=== PATIENT | male | born 1985 | race Caucasian/White ===

== ENCOUNTER 2025-03-29 17:44 | Emergency (ER) | payer OTHER ==
[~2025-03-29] VITALS: Ht 180.3 cm; Wt 154.2 kg
[2025-03-29] MEDS ORDERED: CLIN-141 PO (18:35)
--- NOTE | 2025-03-29 18:35 | ERN ---
General Chief Complaint: Lower Extremity Pain/Injury Stated Complaint: RT LOWER EXTREMITY REDNESS Time Seen by MD: 17:48 Time Seen by Midlevel: 17:48 Source: patient History of Present Illness Initial Comments Patient is a pleasant 40-year-old male with a past medical history of cellulitis presenting to the emergency department for evaluation of right lower extremity redness that started earlier today. He noticed an area of erythema in his unsure if he was bit by an insect. He states the previous time he was diagnosed with cellulitis and admitted to the hospital his symptoms started like the ones from today. He specifically denies any fever, chills, or any other symptoms at this time. Allergies: Coded Allergies: Penicillins (Unverified Allergy, Severe, 03/29/25) Past Medical History Past Medical History: Other Medical History Other: CELLULITS, SLEEP APNEA Past Surgical History: Other Surgical History Other: SINUS SX ROS Dictation CONSTITUTIONAL: Negative except for HPI HEAD/FACE: Negative except for HPI EENT: Negative except for HPI RESPIRATORY: Negative except for HPI GASTROINTESTINAL/ABDOMINAL: Negative except for HPI GENITOURINARY: Negative except for HPI MUSCULOSKELETAL: Negative except for HPI INTEGUMENTARY: Negative except for HPI NEUROLOGICAL/PSYCH: Negative except for HPI HEMATOLOGIC/LYMPHATIC: Negative except for HPI All Systems Negative, Except as noted above. 13 point review of systems assessed and all negative except for above. Physical Exam Physical Exam Dictation Vital Signs reviewed General Appearance: Alert, oriented x 3, no acute distress, well developed, nourished. Head and Face: non-traumatic. Eyes: PERRL, pink conjunctivas, eyelid no trauma, anterior chamber with arcus senilis. Ears: Pinnas intact and no signs of trauma or erythema ear canals clear and no discharge TM no erythema Nose: No discharge, no bleeding. Oropharynx: Mouth normal, tongue pink, pharynx clear,no erythema, tonsils no exudates, no abscesses noted, mucous membrane moist Neck: Supple, non-tender, no thyromegaly, no masses, no JVD, no bruits Breast:Deferred Chest:No tenderness, no crepitus, no paradoxical movement, no retractions Lungs:Clear, well-ventilated, symmetric, no rales, no wheezing, no rhonchi, no stridor, good breath sounds bilaterally Heart: Regular rate, regular rhythm, no murmur, no gallops Vascular: no peripheral edema, Abdomen: Soft, positive bowel sounds, nondistended, no guarding, nontender, no rebound, no masses no hepatomegaly, no splenomegaly, no Graff's sign, no hernias. Rectal: Deferred Genital: Deferred Neurological: Normal speech, motor function intact, sensory function intact Musculoskeletal: Neck nontender, full range of motion, back nontender, full range of motion, Extremities: nontender, full range of motion Skin: Small area of erythema to the right inner lower leg lateral to be calf. Mildly warm to touch, no fluctuance or drainable abscess noted Lymphatic: Deferred MDM MDM: Differential diagnosis: Cellulitis, insect bite, There are no social concerns with this patient. Prescription drug management Prescriptions will include: Clindamycin Medical management and examination interpretation discussions were had by me with other qualified healthcare professionals as indicated for the patient's care. ED Course Vital Signs Date Time Temp Pulse Resp B/P (MAP) Pulse Ox O2 Delivery O2 Flow Rate FiO2 03/29/25 17:56 98.2 99 18 169/101 97 Room Air* 0 21 03/29/25 17:45 98.2 99 18 169/101 97 Room Air 0 DX & DISP Disposition: Discharge Departure Impression: Primary Impression: Cellulitis of right lower leg Condition: Stable Scripts Clindamycin HCl (Clindamycin HCl) 300 Mg Capsule 1 CAP PO TID for 10 Days, #30 CAP 0 Refills Prov: RA BARNETT 03/29/25 Referrals: SELF,REFERRAL (PCP) Time of Disposition: 18:33 I have reviewed the case, and I agree with, Diagnosis and Plan I performed the substantive portion of the visit. I have reviewed and personally made and approve the management plan that is documented in the note by myself or the [facility]ILVER. I acknowledge for responsibility for the patient's management plan. RA BARNETT Mar 29, 2025 18:35
[2025-03-29 18:36] VITALS: BP 145/72; PULSE 89; RESP 18; TEMP 98.2; O2SAT 97
== END 2025-03-29 18:37 | disposition home or self-care (01) ==
LOC: EDH 17:44
DX: L03.115 Cellulitis of right lower limb (principal); Z88.0 Allergy status to penicillin
CPT/HCPCS: 99283

== ENCOUNTER 2025-04-01 15:38 | Emergency (ER) | payer OTHER ==
[~2025-04-01] VITALS: Ht 180.3 cm; Wt 154.2 kg
[~2025-04-01 15:38] MED LIST: CLIN-141 PO
--- NOTE | 2025-04-01 15:48 | ERN ---
ED Note History of Present Illness Stated Complaint: RT LEG SWELLING Chief Complaint: Lower Extremity Pain/Injury Time Seen by MD: 15:43 Dictation: PATIENT IS A 40-YEAR-OLD MALE COMING IN TODAY WITH A ERYTHEMA TENDERNESS TO THE RIGHT LOWER LEG CALF WITH SWELLING HE HAS HAD FOR 3-4 DAYS. NO FEVER NO CHILLS NO NAUSEA VOMITING. NO HISTORY OF TRAUMA. HE WAS SEEN HER AT [facility] [place] DIAGNOSED WITH CELLULITIS WAS PLACED ON CLINDAMYCIN. HE SAID HE HAS BEEN COMPLIANT WITH CLINDAMYCIN PRESCRIBED, HOWEVER HE DOES NOT HAVE A PRIMARY CARE DOCTOR TO FOLLOW UP WITH. Allergies: Coded Allergies: Penicillins (Unverified Allergy, Severe, 03/29/25) Home Meds Active Scripts Clindamycin HCl (Clindamycin HCl) 300 Mg Capsule, 1 CAP PO TID for 10 Days, #30 CAP 0 Refills Prov:RA BARNETT 03/29/25 Past Medical History Past Medical History: Other Additional Past Medical Hx: CELLULITS, SLEEP APNEA Surgical History: Other Surgical History Other: SINUS SX RN Note Reviewed/Agreed w/PFSH: Yes Review of System Dictation CONSTITUTIONAL: NEGATIVE EXCEPT FOR HPI HEAD/FACE: NEGATIVE EXCEPT FOR HPI EENT: NEGATIVE EXCEPT FOR HPI RESPIRATORY: NEGATIVE EXCEPT FOR HPI GASTROINTESTINAL/ABDOMINAL: NEGATIVE EXCEPT FOR HPI GENITOURINARY: NEGATIVE EXCEPT FOR HPI MUSCULOSKELETAL: NEGATIVE EXCEPT FOR HPI RIGHT LEG CALF SWELLING TENDERNESS. ERYTHEMA INTEGUMENTARY: NEGATIVE EXCEPT FOR HPI NEUROLOGICAL/PSYCH: NEGATIVE EXCEPT FOR HPI HEMATOLOGIC/LYMPHATIC: NEGATIVE EXCEPT FOR HPI ALL SYSTEMS NEGATIVE, EXCEPT NOTED ABOVE. 13 POINT REVIEW OF SYSTEMS ASSESSED AND ALL NEGATIVE EXCEPT FOR ABOVE. Initial Vital Sign VS Vital Signs Date Time Temp Pulse Resp B/P (MAP) Pulse Ox O2 Delivery O2 Flow Rate FiO2 04/01/25 15:40 98.2 98 18 177/97 97 Room Air 0 04/01/25 15:52 21 Physical Exam Dictation VITAL SIGNS REVIEWED GENERAL APPEARANCE: ALERT, ORIENTED X 3, NO ACUTE DISTRESS, WELL DEVELOPED, NOURISHED. MORBID OBESITY HEAD AND FACE: NON-TRAUMATIC. EYES: PERRL, PINK CONJUNCTIVAS, EYELID NO TRAUMA, ANTERIOR CHAMBER WITH ARCUS SENILIS. EARS: PINNAS INTACT AND NO SIGNS OF TRAUMA OR ERYTHEMA EAR CANALS CLEAR AND NO DISCHARGE TM NO ERYTHEMA NOSE: NO DISCHARGE, NO BLEEDING. OROPHARYNX: MOUTH NORMAL, TONGUE PINK, PHARYNX CLEAR,NO ERYTHEMA, TONSILS NO EXUDATES, NO ABSCESSES NOTED, MUCOUS M EMBRANE MOIST NECK: SUPPLE, NON-TENDER, NO THYROMEGALY, NO MASSES, NO JVD, NO BRUITS BREAST:DEFERRED CHEST:NO TENDERNESS, NO CREPITUS, NO PARADOXICAL MOVEMENT, NO RETRACTIONS LUNGS:CLEAR, WELL-VENTILATED, SYMMETRIC, NO RALES, NO WHEEZING, NO RHONCHI, NO STRIDOR, GOOD BREATH SOUNDS BILATERALLY HEART: REGULAR RATE, REGULAR RHYTHM, NO MURMUR, NO GALLOPS VASCULAR: NO PERIPHERAL EDEMA, ABDOMEN: SOFT, POSITIVE BOWEL SOUNDS, NONDISTENDED, NO GUARDING, NONTENDER, NO REBOUND, NO MASSES NO HEPATOMEGALY, NO SPLENOMEGALY, NO HARRISON'S SIGN, NO HERNIAS. RECTAL: DEFERRED GENITAL: DEFERRED NEUROLOGICAL: SKIN: COLOR PINK, DRY, NO TURGOR, NO RASH, NO LACERATIONS, NO ABRASIONS, NO CONTUSIONS. LYMPHATIC: DEFERRED RIGHT CALF WITH MILD SWELLING TENDERNESS. NO ERYTHEMA. SKIN IS INTACT. DISTAL NEUROVASCULAR CMS INTACT. Results (Laboratory/Radiology) Laboratory/Radiology Laboratory Tests Test 04/01/25 16:06 White Blood Count 8.8 K/uL (4.8-10.8) Red Blood Count 5.01 MIL/uL (4.50-6.20) Hemoglobin 15.1 g/dL (14.0-18.0) Hematocrit 45.1 % (42-54) Mean Corpuscular Volume 90.0 fL (79-99) Mean Corpuscular Hemoglobin 30.1 pg (27.0-33.0) Mean Corpuscular Hemoglobin Concent 33.5 g/dL (32.0-36.0) Red Cell Distribution Width 12.4 % (11.0-15.5) Platelet Count 223 K/uL (130-400) Mean Platelet Volume 10.5 fL (7.5-10.5) Immature Granulocyte % (Auto) 0.2 % (0-1) Neutrophils (%) (Auto) 63.5 % (40.0-77.0) Lymphocytes (%) (Auto) 22.9 % (21.0-51.0) Monocytes (%) (Auto) 7.4 % (3.0-13.0) Eosinophils (%) (Auto) 5.3 % (0.0-8.0) Basophils (%) (Auto) 0.7 % (0.0-5.0) Neutrophils # (Auto) 5.6 K/uL (1.8-7.7) Lymphocytes # (Auto) 2.0 K/uL (1.0-4.8) Monocytes # (Auto) 0.7 K/uL (0.1-1.0) Eosinophils # (Auto) 0.47 K/uL (0.00-0.70) Basophils # (Auto) 0.06 K/uL (0.00-0.20) Absolute Immature Granulocyte (auto 0.02 K/uL (0-1) Nucleated Red Blood Cells 0.0 % (0.0-0.19) Sodium Level 143 mmol/L (136-145) Potassium Level 3.7 mmol/L (3.5-5.1) Chloride Level 103 mmol/L (101-111) Carbon Dioxide Level 29 mmol/L (21-32) Blood Urea Nitrogen 13 mg/dL (7-18) Creatinine 0.9 mg/dL (0.5-1.3) Glomerular Filtration Rate Calc 112 mL/min (>90) Random Glucose 145 mg/dL (70-105) H Total Calcium 9.5 mg/dL (8.5-10.1) 1655/DOPPLER ULTRASOUND OF RIGHT LEG NEGATIVE FOR DVT Labs Reviewed?: Yes ED Course ED Course Orders Procedure Category Date Status Time Us Venous Doppler US 04/01/25 Taken Unilateral 15:45 Cbc With Differential LAB 04/01/25 Complete 15:45 Basic Metabolic Panel LAB 04/01/25 Complete 15:45 Vital Signs Date Time Temp Pulse Resp B/P (MAP) Pulse Ox O2 Delivery O2 Flow Rate FiO2 04/01/25 15:52 98.1 90 16 174/89 96 Room Air* 0 21 04/01/25 15:40 98.2 98 18 177/97 97 Room Air 0 1655/PATIENT DISCHARGED HOME WITH MUSCULOSKELETAL PAIN RIGHT LEG. IN ADDITION HE IS AWARE THAT HE IS HYPERGLYCEMIC, PROBABLE EARLY TYPE 2 DIABETES. WE WILL BE GIVEN IBUPROFEN AND GIVEN A LIST OF THE PRIMARY CARE DOCTORS ON STAFF TO FOLLOW UP NEXT WEEK. IN ADDITION HE WILL BE MADE AWARE THAT HE HAS BENIGN HYPERTENSION AND WE WILL NEED TO FOLLOW UP FOR MANAGEMENT Medical Decision Making MDM MEDICAL DECISION-MAKING BASED ON BASIC LABS AND DOPPLER ULTRASOUND FOR RIGHT CALF SWELLING TENDERNESS. LABS UNREMARKABLE EXCEPT FOR HYPERGLYCEMIA MOST LIKELY EARLY ONSET TYPE 2 DIABETES ULTRASOUND DOPPLER NEGATIVE FOR DVT IBUPROFEN GIVEN FOR PAIN LIST OF PRIMARY DX & DISP Disposition: Discharge Departure Impression: Primary Impression: Right leg pain Additional Impressions: Benign hypertension, Hyperglycemia Condition: Stable Scripts Ibuprofen (Ibuprofen 800 mg Tab) 800 Mg Tab 800 MG PO Q8H PRN for fever or pain, #30 TAB 0 Refills Prov: ROBBIE MART NP 04/01/25 Additional Instructions: FOLLOW-UP WITH PRIMARY CARE PROVIDER IN 1 TO 2 DAYS. TAKE MEDICATIONS DIRECTED HERE IN THE EMERGENCY ROOM. OKAY TO CONTINUE HOME MEDICATIONS UNLESS OTHERWISE DISCUSSED DURING YOUR VISIT IN THE EMERGENCY ROOM TODAY. RETURN TO YOUR NEAREST EMERGENCY ROOM IF SYMPTOMS WORSEN OR IF THERE IS NO IMPROVEMENT. CALL 911 IF YOU NEED IMMEDIATE ASSISTANCE. TAKE TYLENOL OR MOTRIN [id number] NEEDED AND IF NO CONTRAINDICATIONS ARE PRESENT. INCREASE ORAL HYDRATION. A WOUND CULTURE OR URINE CULTURE WAS ORDERED HERE IN THE EMERGENCY ROOM DEPARTMENT PLEASE FOLLOW-UP WITH PRIMARY CARE PROVIDER AND ADVISE THEM TO GET REPEAT PORTS FROM OUR FACILITY. IF YOU HAD ANY MARIANELA WRAP/SPLINTS THAT WERE APPLIED HERE, PLEASE DO NOT REMOVE THEM UNTIL YOU SEE YOUR PRIMARY CARE OR SPECIALTY. TAKE IBUPROFEN NEEDED FOR PAIN. FOLLOW UP WITH ONE OF THE DOCTORS ON THE LIST PROVIDED YOU IN THE NEXT 1-2 DAYS FOR YOUR ELEVATED BLOOD SUGAR, BLOOD PRESSURE AND RIGHT LEG PAIN. Referrals: SELF,REFERRAL (PCP) Time of Disposition: 16:56 I have reviewed the case, and I agree with, Diagnosis and Plan ROBBIE MART NP Apr 01, 2025 15:48
[2025-04-01 15:52] VITALS: BP 174/89; PULSE 90; RESP 16; TEMP 98.1; O2SAT 96
[2025-04-01 16:18] LABS: BASOPHILS # (AUTO) 0.06 K/uL (0.00-0.20); BASOPHILS % (AUTO) 0.7 % (0.0-5.0); EOSINOPHILS # (AUTO) 0.47 K/uL (0.00-0.70); EOSINOPHILS % (AUTO) 5.3 % (0.0-8.0); HEMATOCRIT 45.1 % (42-54); IMMATURE GRANULOCYTE ABSOLUTE 0.02 K/uL (0-1); LYMPHOCYTES % (AUTO) 22.9 % (21.0-51.0); MEAN CORPUSCULAR HEMOGLOBIN 30.1 pg (27.0-33.0); MEAN CORPUSCULAR HGB CONC 33.5 g/dL (32.0-36.0); MONOCYTES # (AUTO) 0.7 K/uL (0.1-1.0); MONOCYTES % (AUTO) 7.4 % (3.0-13.0); NEUTROPHILS # (AUTO) 5.6 K/uL (1.8-7.7); NEUTROPHILS % (AUTO) 63.5 % (40.0-77.0); PLATELET COUNT (AUTO) 223 K/uL (130-400); RED BLOOD CELL COUNT(AUTO) 5.01 MIL/uL (4.50-6.20); RED CELL DISTRIBUTION WIDTH 12.4 % (11.0-15.5); WHITE BLOOD COUNT (AUTO) 8.8 K/uL (4.8-10.8)
[2025-04-01 16:34] LABS: CREATININE 0.9 mg/dL (0.5-1.3); POTASSIUM 3.7 mmol/L (3.5-5.1)
[2025-04-01] MEDS ORDERED: IBUP-2077 PO (16:57)
--- NOTE | 2025-04-01 17:06 | HMCIMG ---
EXAM: US for Deep Venous Thrombosis, right Lower Extremity. CLINICAL HISTORY: Leg Pain and Swelling TECHNIQUE: Real-time ultrasound scan of the veins of the right lower extremity with color Doppler flow, spectral waveform analysis and compression. COMPARISON: None provided. FINDINGS: DEEP VEINS: The common femoral, superficial femoral, and popliteal veins are echolucent and compressible. There is normal color Doppler flow throughout. The visualized calf veins appear patent. SOFT TISSUES: No popliteal fossa cyst or other abnormalities. IMPRESSION: No deep venous thrombosis evident on right lower extremity examination. /[place]
== END 2025-04-01 17:20 | disposition home or self-care (01) ==
LOC: EDH 15:38
DX: M79.604 Pain in right leg (principal); I10 Essential (primary) hypertension; R73.9 Hyperglycemia, unspecified; Z88.0 Allergy status to penicillin
CPT/HCPCS: 36415; 80048; 85025; 93971; 99284